=== PATIENT | male | born 1980 | race Caucasian/White ===

== ENCOUNTER 2022-02-23 13:10 | Emergency (ER) | payer SELFPAY ==
--- NOTE | ~2022-02-23 | CT_ITS ---
EXAMINATION: CT HEAD WITHOUT CONTRAST CLINICAL INFORMATION: Left facial droop. Concern for Stover's palsy COMPARISON: None TECHNIQUE: Contiguous axial imaging was performed from the skull base to vertex without intravenous administration of contrast. This CT examination was performed using dose optimization techniques as appropriate, variously including the following: *Automated exposure control *Adjustment of mA and/or kV according to patient size (this includes techniques or standardized protocols for targeted exams where dose is matched to indication/reason for exam; i.e. extremities or head) *Use of iterative reconstruction technique DLP: 692 mGy-cm FINDINGS: There is no evidence of acute intracranial hemorrhage or territorial infarction. No abnormal mass effect or midline shift is seen. Zuñiga to white matter differentiation is well preserved. No extra-axial fluid collections are identified. The ventricles are normal in size. There is no abnormal attenuation within the brain parenchyma. The osseous structures and soft tissues are normal. There is partial opacification of the left mastoid air cells. There is ethmoid and sphenoid sinus mucosal thickening. Mucous retention cyst or polyp seen in the maxillary sinuses bilaterally. CT/CT head/brain wo con IMPRESSION: No acute intracranial pathology. Sinus disease.
[2022-02-23 14:01] VITALS: BP 120/77; PULSE 69; RESP 16; TEMP 36.6; O2SAT 98; BMI 38.7
[2022-02-23 14:37] LABS: MANUAL DIFF FLAG NO
[2022-02-23 14:39] LABS: Basophils Percent Auto 0.6 % (0-2); Eosinophils Absolute Auto 0.1 X10*3/uL (0.0-0.4); Eosinophils Percent Auto 2.4 % (0-4); Hematocrit 43.8 % (42.0-52.0); Hemoglobin 14.4 g/dl (14.0-18.0); Imm Gran Abs Auto 0.02 X10*3/uL (0.00-0.03); Imm Gran Pct Auto 0.4 % (0.0-0.4); Lymphocytes Absolute Auto 1.4 X10*3/uL (1.2-4.9); Lymphocytes Percent Auto 26.3 % (20-40); Mean Corpuscular HGB Conc 32.9 g/dl (31.0-36.0); Mean Corpuscular Hemoglobin 29.5 pg (27.0-33.0); Mean Corpuscular Volume 89.8 fL (80.0-98.0); Mean Platelet Volume 10.2 fL (9.4-12.4); Monocytes Absolute Auto 0.9 X10*3/uL (0.1-1.2); Monocytes Percent Auto 16.9 % (2-11); Neutrophils Absolute Auto 2.8 x10*3/uL (2.0-8.3); Neutrophils Percent Auto 53.4 % (45-73); Platelet Count 351 X10*3/uL (160-400); Red Blood Count 4.88 X10*6/uL (4.60-5.80); Red Cell Distribution Width 12.6 % (11.0-16.0); White Blood Count 5.3 X10*3/uL (4.8-10.8)
[2022-02-23 14:53] LABS: Anion Gap 12 (12-20); Blood Urea Nitrogen 12 mg/dL (9-16); C Reactive Protein 0.27 mg/dL (< or = 0.50); Calcium 9.4 mg/dL (8.4-10.2); Carbon Dioxide 26 mmol/L (22-29); Chloride 106 mmol/L (96-108); Creatinine Clr Calc Pharmacy 109.3; Estimated Glomerular Filt Rate > 60; Glucose Random 94 mg/dL (60-115); Potassium 4.2 mmol/L (3.3-5.1); Sodium 140 mmol/L (135-145)
[2022-02-23 15:25] LABS: Erythrocyte Sedimentation Rate 7 MM/HR (0-15)
--- NOTE | 2022-02-23 17:08 | ED.GENADULT ---
HPI - General Adult General Chief complaint: General Medical Stated complaint: L facial numbness Time Seen by Provider: 02/23/22 14:06 Source: patient Mode of arrival: ambulatory Limitations: no limitations History of Present Illness HPI narrative: This is a 41-year-old male with no significant medical history presenting to the emergency department with concerns of bells palsy for one week. He tells me he was positive for COVID on February 08 and he had an ear infection he state he was sick for a week or two and then he developed this weird sensation to the left side of the face, describes it as numb . He states it feels like when i'm at the dentist and they numb me but on my face on the left . He tells that his left eye is blinking slowly, and feels weird however no vision changes. He reports that this has never happened to him before. No history of stroke/TIA/ACS. Patient is not a smoker. Denies fevers, chills, chest pain, shortness of breath, nausea, vomiting, tinitus, abdominal pain, no loss of taste, no difficulties with speech and no difficulties controlling secretions or swallowing Onset (ago): week(s) (1) Related Data Previous Rx's Medication Instructions Recorded aspirin 81 mg capsule 81 mg PO DAILY #30 caps 02/23/22 famotidine 40 mg tablet (Pepcid) 40 mg PO DAILY #30 tabs 02/23/22 prednisone 20 mg tablet 60 mg PO DAILY 4 days #12 tabs 02/23/22 Allergies Allergy/AdvReac Type Severity Reaction Status Date / Time Unable to Assess Allergy Verified 02/23/22 14:06 Review of Systems Review of Systems: Constitutional : No Weight loss, No Fever, No Chills, No Fatigue, No Malaise ENT/Mouth : No sore throat, No Rhinorrhea Eyes: No Eye Pain, No Swelling, No Redness Cardiovascular : No Chest Pain, No SOB, No Dyspnea on Exertion, No Orthopnea, No Edema, No Palpitations Respiratory : No Cough, No Sputum, No Wheezing Gastrointestinal : No Nausea, No Vomiting, No Diarrhea, No Constipation, No abdominal Pain, No Hematochezia, No Melena Genitourinary : No Dysuria, No Urinary Frequency, No Hematuria, Musculoskeletal : No joint pain, No Myalgias, No Joint Swelling Skin : No Skin Lesions, No rash Neuro : No Weakness, + Numbness, No Dizziness, No Headache Psych : No Anxiety/Panic, No Depression All other systems reviewed and are negative Yes all other systems are reviewed and are negative [facility] Past Medical History Attestation statement: The following information was validated with the patient. Source: old records reviewed and nursing notes reviewed Social History Social History Advance Directives: No Advance Directives Information Provided: No Physical Exam ED Vital Signs: Vital Signs - 24 hr 02/23/22 14:01 Temperature 98 F Pulse Rate 69 Respiratory Rate 16 Blood Pressure 120/77 Pulse Oximetry 98 Oxygen Delivery Method Room Air BMI result Body Mass Index 38.7 vss Appearance: Alert.? Oriented X3.? No acute distress.? Head: Normocephalic, atraumatic, no step-offs or deformities Eyes: Pupils equal, round and reactive to light.? Patient's left eye appears to open wider than right eye, EOMI pain free. ENT: Pharynx normal.?Normal nose, no rashes. Bilateral TM and EC wnl. Neck: Normal inspection.? Neck supple.? CVS: Normal heart rate and rhythm.? Pulses normal.? Respiratory: No respiratory distress.? Breath sounds normal.? Abdomen: Soft and nontender.? Skin: Skin warm and dry.? Normal skin color.? Normal skin turgor.? Extremities: No lower extremity edema.? No calf ttp. 5/5 strength to bilateral upper and lower extremities. Brisk reflexes to b/l patellar region, and tricep reflex. Back: No midline tenderness, no C-spine tenderness, full range of motion, no CVA tenderness bilaterally Neuro: Oriented X 3.? No motor deficit.? No sensory deficit. CN 2-12 intact. Normal finger to nose, heel to perez, steady tandem gait. Sensory to trigeminal nerve normal. Wrinkling of the forehead more prominent on right side, facial weakness on the left with decreased sensation on the left. Ambulating w/ steady gait. Cotton swab test + in b/l eyes Course Reevaluation(s) Reevaluation #1: Inflammatory markers normal. EKG wnl Patient tells me he does not have a PCP. I gave him a list of PCPs in the area and advised him to follow-up with them. I will start patient on prednisone 60 mg p.o. daily x5 days And baby aspirin 81 mg p.o. daily, since I am starting him on both of these medications I will also give him Pepcid. At this time I feel comfortable with discharge home with prompt PCP follow-up. I will also give him follow-up with neurology. I educated patient on plan and diagnosis. I also educated him that his symptoms could get worse before they get better. I explained to him that I suspect that this is Stover's palsy as his only symptom is an odd sensation to the left side of his face. I educated him on worrisome signs and symptoms and when to return and outlined he is on his discharge. At this time I feel comfortable with discharge home with prompt follow-up by outpatient providers. Patient was told he will be called only if laboratory studies are positive for herpes, Lyme. Time: 19:00 Medical Decision Making [facility] Narrative Medical decision making narrative: [id number] 41 year old male presents w/ cocerns of bells palsy after covid 19 infection patient was + on February 08 sx bharati a week or two and then the left sided facial numbness and odd sensation ocurred. Not on thinners PE- significant for Alert and Oriented X 3.? No motor deficit.? No sensory deficit. CN 2-12 intact. Normal finger to nose, heel to perez, steady tandem gait. Sensory to trigeminal nerve normal. Wrinkling of the forehead more prominent on right side, facial weakness on the left with decreased sensation on the left. Ambulating w/ steady gait. RRR. Lungs clear. TM and EC wnl. nlikely that this is thalamic or posterior stroke. Unlikely stroke in general. Patient without headache or vision changes. Unlikely that this is Slemp Driscoll. 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 Plan- labs, urine, ct head/brain, lyme, herpes Discussed this case w/ my attending who agrees w/ plan. No need for MRI at this time as there are no focal neuro deficits and this has been going on for 1 week. Recommends ASA 81 mg daily. Medical Records Medical records reviewed: Yes I reviewed the patient's medical records. Lab Data Lab results reviewed: Yes I reviewed the patient's lab results. Result diagrams: 02/23/22 14:29 02/23/22 14:29 Labs: Lab Results 02/23/22 02/23/22 02/23/22 Range/Units 14:29 14:29 14:29 WBC 5.3 (4.8-10.8) X10*3/uL RBC 4.88 (4.60-5.80) X10*6/uL Hgb 14.4 (14.0-18.0) g/dl Hct 43.8 (42.0-52.0) % MCV 89.8 (80.0-98.0) fL MCH 29.5 (27.0-33.0) pg MCHC 32.9 (31.0-36.0) g/dl RDW 12.6 (11.0-16.0) % Plt Count 351 (160-400) X10*3/uL MPV 10.2 (9.4-12.4) fL Immature Gran % (Auto) 0.4 (0.0-0.4) % Neut % (Auto) 53.4 (45-73) % Lymph % (Auto) 26.3 (20-40) % [place] % (Auto) 16.9 H (2-11) % Eos % (Auto) 2.4 (0-4) % Baso % (Auto) 0.6 (0-2) % Lymph # (Auto) 1.4 (1.2-4.9) X10*3/uL [place] # (Auto) 0.9 (0.1-1.2) X10*3/uL Eos # (Auto) 0.1 (0.0-0.4) X10*3/uL Baso # (Auto) 0.0 (0.0-0.2) X10*3/uL Abs Immat Gran (auto) 0.02 (0.00-0.03) X10*3/uL Absolute Neuts (auto) 2.8 (2.0-8.3) x10*3/uL Absolute Nucleated RBC 0.000 (0.0-0.012) X10*3/uL Nucleated RBC % (auto) 0.0 (0.0-0.2) /100WBC ESR 7 (0-15) MM/HR Sodium 140 (135-145) mmol/L Potassium 4.2 (3.3-5.1) mmol/L Chloride 106 (96-108) mmol/L Carbon Dioxide 26 (22-29) mmol/L Anion Gap 12 (12-20) BUN 12 (9-16) mg/dL Creatinine 1.12 (0.5-1.4) mg/dL Estim Creat Clear Calc 109.3 Estimated GFR > 60 Random Glucose 94 (60-115) mg/dL Calcium 9.4 (8.4-10.2) mg/dL C-Reactive Protein 0.27 (< or = 0.50) mg/dL ECG Data Attestation: I personally reviewed and interpreted this ECG as follows: Prior ECG tracings: not available for review Interpretation: Ventricular rate 55, VT normal, QRS normal, QT /QTC normal. EKG with sinus bradycardia no ST elevations or inversions concerning for ischemia. Critical Care Time Critical Care Time Critical Care Time: No Discharge Plan Discharge Clinical Impression: Facial numbness, Stover's palsy Patient Disposition: Home, Self-Care Instructions: Paresthesia (ED) Additional Instructions: Take your medications as prescribed. If you were prescribed antibiotics today, it is important that you take your medication to their entirety, do not skip any doses, do not finish them early. Follow-up with your primary care provider this week. Return to the emergency department with new or worsening symptoms. Such as fevers, chills, chest pain, shortness of breath, nausea, vomiting, dizziness, headache, vision changes, lethargy In case of emergency call 911 There are currently blood test pending for you, you will be called if these are positive. Prescriptions: New famotidine [Pepcid] 40 mg tablet 40 mg PO DAILY Qty: 30 0RF prednisone 20 mg tablet 60 mg PO DAILY 4 Days Qty: 12 0RF aspirin 81 mg capsule 81 mg PO DAILY Qty: 30 0RF Referrals: Physician,None [Primary Care Provider] - 2 days
[2022-02-23] MEDS: predniSONE 20 MG TABLET 60 MG PO (18:09)
--- NOTE | 2022-02-23 18:11 | ECG_ITS ---
Test Reason : DIAG Blood Pressure : / mmHG Vent. Rate : 055 BPM Atrial Rate : 055 BPM P-R Int : 182 ms QRS Dur : 100 ms QT Int : 402 ms P-R-T Axes : 029 -01 014 degrees QTc Int : 384 ms Sinus bradycardia Otherwise normal ECG No previous ECGs available Referred By: Elizabeth Pinto Electronically Signed By:BABATUNDE DOWD MD
[2022-02-25 17:21] LABS: Lyme Abs Screen <0.90 index
[2022-02-25 17:27] LABS: Herpes Simplex Type 1 IgG <0.90 index; Herpes Simplex Type 2 IgG 1.79 index
[2022-03-02 22:41] LABS: HSV 1 IgM IFA Negative (Negative); HSV 2 IgM IFA Negative (Negative)
== END 2022-02-23 18:58 | disposition home or self-care (01) ==
PROVIDERS: Physician Assistant; Emergency Provider Emergency Medicine
DX: G51.0 Bell's palsy (principal); B00.9 Herpesviral infection, unspecified; R20.0 Anesthesia of skin; Z79.82 Long term (current) use of aspirin; Z79.899 Other long term (current) drug therapy
CPT/HCPCS: 36415; 70450; 80048; 85025; 85652; 86140; 86617; 86618; 86695; 86696; 93005; 99284